=== PATIENT | female | born 1975 | race Caucasian/White ===

== ENCOUNTER 2017-07-15 15:11 | Outpatient (CLI) | payer BC | END 2017-07-15 15:12 | disposition home or self-care (01) | LOC: BICMAMMO 15:11 | PROVIDERS: ATTEND Family Medicine | DX: Z12.31 Encounter for screening mammogram for malignant neoplasm of breast (principal) | CPT/HCPCS: 77063; 77067 ==

== ENCOUNTER 2020-09-21 15:14 | Emergency (ER) | payer BC ==
[2020-09-21] MEDS ORDERED: predniSONE 20 MG TAB ONE (15:47)
[2020-09-21] MEDS ORDERED: Ketorolac Tromethamine 30 MG/ML VIAL ONE (15:47)
[2020-09-21] MEDS ORDERED: Fentanyl 100 MCG/2 ML VIAL ONE (15:47)
== END 2020-09-21 16:52 | disposition home or self-care (01) ==
LOC: ERS 15:14
DX: K04.7 Periapical abscess without sinus (principal)
CPT/HCPCS: 70486; 96372; J1885; J3010; J7512

== ENCOUNTER 2024-10-21 19:59 | Emergency (ER) | payer SELFPAY ==
[~2024-10-21 19:59] MED LIST: GASTROGRAFIN 30 ML BOT ONE; Iopamidol-370 76% 500 ML MDV (1 ML CHARGE) ONE
[2024-10-21 21:29] LABS: Hematocrit 36.0 % (36.0-47.0); Hemoglobin 12.1 g/dL (12.0-16.0); Mean Corpuscular Hemoglobin 29.4 pg (27.0-31.0); Mean Corpuscular Volume 87.4 fL (78.0-98.0); Platelet Count 250 10x3/uL (130-400); Red Blood Cell (RBC) Count 4.12 mill/uL (4.20-5.40); White Blood Cell (WBC) Count 8.00 10x3/uL (4.8-10.8)
[2024-10-21 21:44] LABS: ALT (SGPT) 19 U/L (Less than 34); AST (SGOT) 41 U/L (11-34); Albumin 3.3 g/dL (3.1-4.5); Alkaline Phosphatase 106 U/L (40-110); Anion Gap 16 mmol/L (10-20); BUN (Urea Nitrogen) 7 mg/dL (7.0-18.7); Bilirubin, Total 0.4 mg/dL (0.3-1.2); Calc. Creatinine Clearance 0 mL/min (70-130); Calcium 8.9 mg/dL (7.8-10.44); Carbon Dioxide 21 mmol/L (22-29); Chloride 107 mmol/L (98-107); Globulin 4.1 g/dL (2.4-3.5); Glucose 98 mg/dL (70-105); Lipase 11 U/L (8-78); Potassium 3.6 mmol/L (3.5-5.1); Sodium 140 mmol/L (136-145)
[2024-10-21 22:06] LABS: Platelet Adequacy Comment Platelets Normal; RBC Morphology Within Normal Limits; Smudge Cells 5.9 %
[2024-10-21 22:28] LABS: Bacteria/HPF None Seen HPF (None Seen); CAUTI Indications for Culture Pelvic or flank pain; Glucose, Urine (Dipstick) Normal (Negative); Leukocyte Negative Leu/uL (Negative); Protein, Urine (Dipstick) 10 mg/dL (Neg-Trace); RBC/HPF 0-3 HPF (0-3); Specific Gravity, Urine 1.018 (1.002-1.036); WBC/HPF None Seen HPF (0-3)
[2024-10-21 22:30] LABS: Urine Culture Reflex No No
[2024-10-22 15:22] LABS: Campy jejuni + coli by PCR POSITIVE (Negative); STEC Shiga Toxin 1+2 Negative (Negative); Salmonella spp. by PCR Negative (Negative); Shigella spp + EIEC by PCR Negative (Negative)
== END 2024-10-22 00:49 | disposition home or self-care (01) ==
LOC: ERS 19:59
DX: S90.466A Insect bite (nonvenomous), unspecified lesser toe(s), initial encounter (principal); K52.9 Noninfective gastroenteritis and colitis, unspecified; I11.9 Hypertensive heart disease without heart failure; I43 Cardiomyopathy in diseases classified elsewhere; R16.0 Hepatomegaly, not elsewhere classified; F41.9 Anxiety disorder, unspecified; F43.10 Post-traumatic stress disorder, unspecified; Z90.49 Acquired absence of other specified parts of digestive tract; Z55.6 Problems related to health literacy; Z90.710 Acquired absence of both cervix and uterus; W57.XXXA Bitten or stung by nonvenomous insect and other nonvenomous arthropods, initial encounter
CPT/HCPCS: 71045; 74177; 80053; 81001; 83690; 85025; 87428; 87505; 93005; Q9963; Q9967

== ENCOUNTER 2024-10-24 12:40 | Outpatient (CLI) | payer OTHER | END 2024-10-24 12:41 | disposition home or self-care (01) | LOC: SCSMRI 12:40 | PROVIDERS: ATTEND Physician Assistant | DX: M25.561 Pain in right knee (principal); M71.21 Synovial cyst of popliteal space [Baker], right knee; M25.461 Effusion, right knee ==

== ENCOUNTER 2024-11-07 11:26 | Outpatient (CLI) | payer OTHER | END 2024-11-07 11:27 | disposition home or self-care (01) | LOC: ULT 11:26 | PROVIDERS: ATTEND Physician Assistant | DX: N28.89 Other specified disorders of kidney and ureter (principal) | CPT/HCPCS: 76770 ==